=== PATIENT | male | born 1960 | race Caucasian/White ===

== ENCOUNTER 2021-03-20 02:23 | Emergency (ER) | payer OTHER ==
--- NOTE | 2021-03-20 03:12 | EDM.PDOC ---
ED HPI GENERAL MEDICAL PROBLEM - General Chief Complaint: Genitourinary Problem Stated Complaint: [facility] AMB Time Seen by Provider: 03/20/21 03:00 - History of Present Illness INITIAL COMMENTS - FREE TEXT/NARRATIVE: 60-year-old male presents the emergency room with rectal bleeding. Patient is a little over 2 weeks post hemorrhoid surgery. The patient cannot elaborate to what exactly was done however he had general anesthesia. Patient did great after surgery up until 2 days ago he had some rectal spotting bleeding this was brief and short-lived. Today again he had some pretty heavy rectal bleeding says he put about an inch down in the bottom of 1 gallon bucket. This stopped spontaneously when the patient had a bowel movement. 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 - Related Data Allergies Allergy/AdvReac Type Severity Reaction Status Date / Time No Known Allergies Allergy Verified 03/20/21 02:28 Home Meds: Home Meds . [No Known Home Meds] 03/20/21 [History] Past Medical History Cardiovascular History: Reports: Hypertension - Past Surgical History Neurological Surgical History: Reports: Lumbar Spine Social & Family History - Tobacco Use Tobacco Use Status *Q: Current Every Day Tobacco User Years of Tobacco use: 50 Packs/Tins Daily: 1.5 - Alcohol Use Days Per Week of Alcohol Use: 2 Number of Drinks Per Day: 2 Total Drinks Per Week: 4 - Recreational Drug Use Recreational Drug Use: No ED ROS GENERAL - Review of Systems Review Of Systems: See Below Constitutional: Reports: No Symptoms HEENT: Reports: No Symptoms Respiratory: Reports: No Symptoms Cardiovascular: Reports: No Symptoms Endocrine: Reports: No Symptoms GI/Abdominal: Reports: Bloody Stool. Denies: Abdominal Pain, Constipation, Diarrhea, Nausea, Vomiting : Reports: No Symptoms Musculoskeletal: Reports: No Symptoms ED EXAM, GENERAL - Physical Exam Exam: See Below Exam Limited By: No Limitations General Appearance: Alert, No Apparent Distress Head: Atraumatic Neck: Normal Inspection, Supple, Non-Tender, Full Range of Motion Respiratory/Chest: No Respiratory Distress, Lungs Clear, Normal Breath Sounds Cardiovascular: Regular Rate, Rhythm, No Edema, No Murmur GI/Abdominal: Normal Bowel Sounds, Soft, Non-Tender Rectal (Males) Exam: Deferred (What ever allowed to BM to stop the bleeding I did not want to aggravate this) Course - Vital Signs Last Recorded V/S: Last Vital Signs Temp 36.6 C 03/20/21 02:28 Pulse 84 03/20/21 02:28 Resp 17 03/20/21 02:28 BP 129/69 03/20/21 02:28 Pulse Ox 95 03/20/21 02:28 - Orders/Labs/Meds Orders: Active Orders 24 hr Category Date Time Status PATIENT RETYPE [BBK] Routine Lab 03/20/21 05:02 Ordered Labs: Laboratory Tests 03/20/21 03/20/21 03/20/21 Range/Units 03:24 03:24 03:24 WBC 13.35 H (4.23-9.07) K/mm3 RBC 4.55 L (4.63-6.08) M/mm3 Hgb 13.8 (13.7-17.5) gm/dl Hct 41.3 (40.1-51.0) % MCV 90.8 (79.0-92.2) fl MCH 30.3 (25.7-32.2) pg MCHC 33.4 (32.2-35.5) g/dl RDW Std Deviation 40.9 (35.1-43.9) fL Plt Count 239 (163-337) K/mm3 MPV 11.1 (9.4-12.3) fl Neut % (Auto) 79.3 H (34.0-67.9) % Lymph % (Auto) 12.1 L (21.8-53.1) % Callahan % (Auto) 6.7 (5.3-12.2) % Eos % (Auto) 1.3 (0.8-7.0) Baso % (Auto) 0.4 (0.1-1.2) % Neut # (Auto) 10.58 H (1.78-5.38) K/mm3 Lymph # (Auto) 1.62 (1.32-3.57) K/mm3 Callahan # (Auto) 0.90 H (0.30-0.82) K/mm3 Eos # (Auto) 0.17 (0.04-0.54) K/mm3 Baso # (Auto) 0.05 (0.01-0.08) K/mm3 Sodium 144 (136-145) mEq/L Potassium 3.8 (3.5-5.1) mEq/L Chloride 106 (98-107) mEq/L Carbon Dioxide 25 (21-32) mEq/L Anion Gap 16.8 H (5-15) BUN 23 H (7-18) mg/dL Creatinine 1.3 (0.7-1.3) mg/dL Est Cr Clr Drug Dosing 58.92 mL/min Estimated GFR (MDRD) 56 (>60) mL/min BUN/Creatinine Ratio 17.7 (14-18) Glucose 178 H (70-99) mg/dL Calcium 8.3 L (8.5-10.1) mg/dL Total Bilirubin 0.5 (0.2-1.0) mg/dL AST 26 (15-37) U/L ALT 54 (16-63) U/L Alkaline Phosphatase 53 (46-116) U/L Total Protein 6.6 (6.4-8.2) g/dl Albumin 3.5 (3.4-5.0) g/dl Globulin 3.1 gm/dL Albumin/Globulin Ratio 1.1 (1-2) Blood Type A POSITIVE Gel Antibody Screen Negative - Re-Assessments/Exams Free Text/Narrative Re-Assessment/Exam: 03/20/21 05:41 The patient has done well here in the emergency room blood work is stable BUN is up slightly as is his anion gap. Blood type is A positive. He said no bleeding in the department. Discussed further treatment options. The patient states no uncertain terms he wants to get back to his truck so we can get home. And that is reasonable given the options we have. Offered admission however we have no beds and I am not aware of any beds in the vicinity. We are trying to get other people admitted and cannot find any beds. However the patient is comfortable to go and eager to be discharged. Departure - Departure Time of Disposition: 05:45 Disposition: Home, Self-Care 01 Clinical Impression: Rectal bleeding, Hemorrhoids, internal, with bleeding - Discharge Information Referrals: PCP,Not In Area [Primary Care Provider] - Forms: ED Department Discharge Additional Instructions: Return to the emergency room with any questions problems or concerning symptoms. Do not drive if you become lightheaded or if you are having frequent loose stools. Follow-up with your surgeon as soon as you can. Sepsis Event Note (ED) - Evaluation Sepsis Screening Result: No Definite Risk - Focused Exam Vital Signs: Vital Signs Temp Pulse Resp BP Pulse Ox 03/20/21 02:28 36.6 C 84 17 129/69 95 - My Orders Last 24 Hours: My Active Orders 03/20/21 05:02 PATIENT RETYPE [BBK] Routine - Assessment/Plan Last 24 Hours: My Active Orders 03/20/21 05:02 PATIENT RETYPE [BBK] Routine
== END 2021-03-20 05:58 | disposition home or self-care (01) ==
LOC: JD.ED 02:23
DX: K62.5 Hemorrhage of anus and rectum (principal); K64.8 Other hemorrhoids; I10 Essential (primary) hypertension; Z72.0 Tobacco use
CPT/HCPCS: 36415; 80053; 85025; 86850; 86900; 86901; 99283